=== PATIENT | male | born 1970 | race African-American/Black ===

== ENCOUNTER 2020-03-18 12:44 | Emergency (ER) | payer OTHER ==
[2020-03-18 12:53] VITALS: BP 171/87; PULSE 70; TEMP 97.6; BMI 25.0
[2020-03-18] MEDS ORDERED: KETOROLAC TROMETHAMINE 30 MG/1 ML VIAL IM ONE (13:51)
[2020-03-18] MEDS ORDERED: CYCLOBENZAPRINE HCL 10 MG TABLET (FP) PO ONE (13:51)
[2020-03-18] MEDS ORDERED: CYCLOBENZAPRINE HCL 10 MG TABLET (FP) ONE ×2 (13:56→14:03)
[2020-03-18] MEDS ORDERED: KETOROLAC TROMETHAMINE 30 MG/1 ML VIAL ONE (13:57)
[2020-03-18] MEDS ORDERED: LIDOCAINE 5% TOPICAL PATCH TP ONE (14:01)
[2020-03-18] MEDS ORDERED: LIDOCAINE 5% TOPICAL PATCH ONE (14:03)
[2020-03-18] MEDS ORDERED: LIDOCAINE PATCH REMOVAL MC SCH (22:00)
== END 2020-03-18 15:39 | disposition home or self-care (01) ==
LOC: JERFT 12:44
PROC: 3E0233Z Introduction of Anti-inflammatory into Muscle, Percutaneous Approach (ICD-10-PCS; principal; 2020-03-18)
DX: S22.32XA Fracture of one rib, left side, initial encounter for closed fracture (principal); S40.012A Contusion of left shoulder, initial encounter
CPT/HCPCS: 71045-TC-FY; 71101-TC-LT-FY; 73030-TC-LT-FY; 99285-25

== ENCOUNTER 2022-10-07 05:28 | Day surgery (SDC) | payer OTHER ==
[2022-10-06 11:51] VITALS: BMI 25.1
[2022-10-07 09:53] VITALS: TEMP 98
[2022-10-07 09:56] VITALS: BP 127/69; PULSE 55; RESP 15
== END 2022-10-07 09:40 | disposition home or self-care (01) ==
LOC: JASU-ENDO 05:28
PROVIDERS: ATTEND Student in an Organized Health Care Education/Training Program
PROC: 0DBM8ZX Excision of Descending Colon, Via Natural or Artificial Opening Endoscopic, Diagnostic (ICD-10-PCS; principal; 2022-10-07 09:00)
DX: D12.4 Benign neoplasm of descending colon (principal); K64.8 Other hemorrhoids
CPT/HCPCS: 82962; 88305-TC

== ENCOUNTER 2024-10-07 12:02 | Emergency (ER) | payer OTHER ==
[2024-10-07 12:22] VITALS: BP 145/74; PULSE 61; RESP 17; TEMP 98.3; BMI 28.5
[2024-10-07] MEDS ORDERED: DIPHTH,PERTUSS(ACELL),TET 0.5 ML DISP.SYRIN IM ONE (13:14)
[2024-10-07] MEDS: DIPHTH,PERTUSS(ACELL),TET 0.5 ML DISP.SYRIN IM ONE (13:18)
[2024-10-07] MEDS ORDERED: BACITRACIN ZINC 15 GM TUBE TOPICAL OINTMENT ONE (13:47)
[2024-10-07] MEDS: BACITRACIN ZINC 15 GM TUBE TOPICAL OINTMENT TP ONE (13:52)
== END 2024-10-07 14:29 | disposition home or self-care (01) ==
LOC: JERFT 12:02
PROC: 3E0234Z Introduction of Serum, Toxoid and Vaccine into Muscle, Percutaneous Approach (ICD-10-PCS; principal; 2024-10-07)
DX: S61.310A Laceration without foreign body of right index finger with damage to nail, initial encounter (principal); W27.4XXA Contact with kitchen utensil, initial encounter; Y99.0 Civilian activity done for income or pay
CPT/HCPCS: 73140-TC-RT-FY; 90471; 90715; 99284-25